=== PATIENT | female | born 1990 | race Hispanic/Latino ===

== ENCOUNTER 2024-02-28 09:12 | Inpatient (IN) | payer SELFPAY ==
[~2024-02-28] VITALS: Ht 154.9 cm; Wt 65.8 kg
[2024-02-28] MEDS ORDERED: ceFAZolin SODIUM 1 GM VIAL IVPB PRN (10:00)
[2024-02-28] MEDS ORDERED: LACTATED RINGERS 1000ML 1,000 ML IV SCH (10:00)
[2024-02-28] MEDS ORDERED: CALCIUM GLUC 1GM/10ML VIAL IV PRN (10:00)
[2024-02-28 10:53] LABS: HEMATOCRIT 39.5 % (36-48); MEAN CORPUSCULAR HEMOGLOBIN 30.9 pg (27.0-33.0); MEAN CORPUSCULAR HGB CONC 33.7 g/dL (32.0-36.0); MEAN CORPUSCULAR VOLUME 91.6 fL (79-99); RED BLOOD CELL COUNT(AUTO) 4.31 MIL/uL (4.00-5.50); RED CELL DISTRIBUTION WIDTH 13.1 % (11.0-15.5); WHITE BLOOD COUNT (AUTO) 9.8 K/uL (4.8-10.8)
[2024-02-28] MEDS: MAGNESIUM 4GM PREMIX 100ML 100 ML IV SCH (10:58)
[2024-02-28] MEDS ORDERED: ceFAZolin SODIUM 2 GM VIAL IVPB PRN (11:00)
[2024-02-28] MEDS: AMPICILLIN 2GM+NS 100ML 100 ML IV SCH (11:04)
[2024-02-28 11:10] LABS: AMPHET/METH SCREEN,URINE NEGATIVE (NEGATIVE); APPEARANCE,URINE CLEAR (CLEAR); BARBITURATE SCREEN, URINE NEGATIVE (NEGATIVE); BENZODIAZEPINES SCREEN,URINE NEGATIVE (NEGATIVE); BILIRUBIN,URINE NEGATIVE (NEGATIVE); CANNABINOID SCREEN,URINE NEGATIVE (NEGATIVE); COCAINE SCREEN,URINE NEGATIVE (NEGATIVE); COLOR,URINE YELLOW (YELLOW); GLUCOSE, URINE (UA) NEGATIVE (NEGATIVE); KETONES,URINE 20 mg/dL (NEGATIVE); LEUKOCYTE ESTERASE ,URINE NEGATIVE Leu/uL (NEGATIVE); NITRATE,URINE NEGATIVE (NEGATIVE); OPIATE SCREEN,URINE NEGATIVE (NEGATIVE); PH,URINE 7.5 (5.0-8.0); PHENCYCLIDINE SCREEN,URINE NEGATIVE (NEGATIVE); PROTEIN,URINE 10 mg/dL (NEGATIVE); UROBILINOGEN,URINE 0.2 mg/dL (0.2-1.0)
[2024-02-28 11:19] LABS: ADD UA MICROSCOPIC YES
[2024-02-28 11:21] LABS: MUCUS,URINE FEW LPF (None Seen); SQUAMOUS EPITHELIAL CELL,UR RARE /HPF (0-2)
[2024-02-28] MEDS ORDERED: FENTanyl CITRate PF 50 MCG/1 ML 2ML VIAL ONE (11:33)
[2024-02-28] MEDS ORDERED: morPHINE PF 100MG/10ML AMP IV ONE (11:33)
[2024-02-28] MEDS ORDERED: dexaMETHasone SOD PHOSPHATE 10MG/ML 1ML VIAL ONE (11:33)
[2024-02-28] MEDS ORDERED: ondanSETRON 4MG INJ ONE (11:33)
[2024-02-28 11:48] LABS: HIV 1&2 ANTIBODY Non-Reactive (Negative); HIV-1 p24 Antigen Non-Reactive (Negative)
[2024-02-28] MEDS: ceFAZolin SODIUM 2 GM VIAL IVPB ONE (11:50)
[2024-02-28 13:52] LABS: RAPID PLASMA REAGIN NONREACTIVE (NONREACTIVE)
[2024-02-28] MEDS ORDERED: 0.9%NACL 10ML VIAL IVP PRN (14:00)
[2024-02-28] MEDS: MEPERIDINE-PF 75 MG/ML SYG IM PRN (15:21)
[2024-02-28] MEDS: PROMETHAZINE HCL 25 MG/ML 1ML AMPULE IM PRN (15:21)
[2024-02-28 16:30] VITALS: BP 108/50; PULSE 72; RESP 18; TEMP 96.9
[2024-02-28 19:59] VITALS: BP 116/76; PULSE 73; RESP 18; TEMP 97.9
[2024-02-28] MEDS: ceFAZolin SODIUM 2 GM VIAL IVPB SCH (20:22)
[2024-02-28] MEDS ORDERED: FOLI0.4T6 PO (21:06)
[2024-02-28] MEDS ORDERED: FERR-82 PO (21:06)
[2024-02-28] MEDS: AMPICILLIN 1GM+NS 50ML 50 ML IV SCH (22:00)
[2024-02-28] MEDS: DEXTROSE 5 %-0.45 % NACL 1,000 ML IV PRN (22:49)
[2024-02-28] MEDS: acetaMINOPHEN WITH coDEINE 1 TAB TAB PO PRN (23:20)
[2024-02-28] MEDS: LACTATED RINGERS 1000ML 1,000 ML IV SCH (23:20)
[2024-02-28 23:54] VITALS: BP 99/54; PULSE 61; RESP 18; TEMP 97.7
[2024-02-29] VITALS (7 sets, daily range): BP systolic 95–122; BP diastolic 56–76; PULSE 57–80; RESP 16–19; TEMP 97.2–98
[2024-02-29] MEDS ORDERED: acetaMINOPHEN WITH coDEINE 1 TAB TAB PO PRN ×2 (02:13→11:00)
[2024-02-29] MEDS ORDERED: LANOLIN 30GM OINTMENT TP PRN ×2 (02:30→11:00)
[2024-02-29] MEDS ORDERED: acetaMINOPHEN 500 MG TABLET PO PRN ×3 (02:30→11:00)
[2024-02-29] MEDS ORDERED: BisaCODYL 10 MG SUPP.RECT RC PRN ×2 (02:30→11:00)
[2024-02-29] MEDS: MAGNESIUM SULFATE 40GM/1000ML 1,000 ML IV SCH (06:00)
[2024-02-29 06:48] LABS: HEMATOCRIT 35.7 % (36-48); MEAN CORPUSCULAR HEMOGLOBIN 30.4 pg (27.0-33.0); MEAN CORPUSCULAR HGB CONC 33.3 g/dL (32.0-36.0); MEAN CORPUSCULAR VOLUME 91.3 fL (79-99); RED BLOOD CELL COUNT(AUTO) 3.91 MIL/uL (4.00-5.50); RED CELL DISTRIBUTION WIDTH 13.1 % (11.0-15.5); WHITE BLOOD COUNT (AUTO) 11.5 K/uL (4.8-10.8)
[2024-02-29] MEDS: SIMETHICONE 80 MG TAB.CHEW PO PRN (09:08)
[2024-02-29] MEDS: ibuPROFEN 600 MG TABLET PO PRN (09:08)
[2024-02-29] MEDS ORDERED: SIMETHICONE 80 MG TAB.CHEW PO PRN (11:00)
[2024-02-29] MEDS ORDERED: HYDROcodone/APAP 5/325 1 TAB TABLET PO PRN (11:00)
[2024-02-29] MEDS ORDERED: ibuPROFEN 600 MG TABLET PO PRN (11:00)
[2024-02-29] MEDS: doCUSate SODIUM 100 MG CAP PO SCH (20:28)
[2024-03-01 04:05] VITALS: BP 127/78; PULSE 75; RESP 18; TEMP 97.6
[2024-03-01 08:00] VITALS: BP 106/67; PULSE 83; RESP 18; TEMP 97.5
[2024-03-01] MEDS: HYDROcodone/APAP 5/325 1 TAB TABLET PO PRN (10:49)
[2024-03-01 11:05] VITALS: BP 111/66; PULSE 81; RESP 18; TEMP 97.9
== END 2024-03-01 12:00 | disposition home or self-care (01) | DRG 788 ==
LOC: EDH 09:12 → OBSVTOIN 09:13 → LDH 09:13 → EDH 09:26 → WSH 16:26
PROVIDERS: ADMIT Obstetrics & Gynecology; ATTEND Obstetrics & Gynecology
PROC: 10D00Z1 Extraction of Products of Conception, Low, Open Approach (ICD-10-PCS; principal; 2024-02-28 11:45)
DX: O82 Encounter for cesarean delivery without indication (principal); Z3A.37 37 weeks gestation of pregnancy; Z37.0 Single live birth
CPT/HCPCS: 36415; 59510; 80305; 81001; 85027; 86592; 86701; 86850; 86900; 86901; 87340; 87390; A4344; A4351; G0378; J0290; J1100; J2175; J2274; J2405; J2550; J2590; J3010; J3475; J7120; A4248; A4510; A4600; A4649; J0690; L0625